=== PATIENT | male | born 1960 | race Caucasian/White ===

== ENCOUNTER 2020-09-17 18:35 | Emergency (ER) | payer OTHER, SELFPAY ==
[2020-09-17 18:37] VITALS: BP 223/124; PULSE 84; RESP 17; TEMP 36.4; O2SAT 96; BMI 24.3
--- NOTE | 2020-09-17 18:59 | EKG12_ITS ---
Test Reason : DYSRHYTHMIA Blood Pressure : / mmHG Vent. Rate : 079 BPM Atrial Rate : 079 BPM P-R Int : 136 ms QRS Dur : 072 ms QT Int : 374 ms P-R-T Axes : 063 055 007 degrees QTc Int : 428 ms Normal sinus rhythm Septal infarct , age undetermined Abnormal ECG Confirmed by MARGO LANGLEY, BERTHA ([id number]), purchase request editor SHALA GONZALEZ ([id number]) on 09/18/2020 10:50:24 AM Referred By: JUAN Confirmed By:BERTHA ARAGON MD
--- NOTE | 2020-09-17 19:04 | ED.VIS.GEN ---
History of Present Illness Chief Complaint: Hypertension Informant: Patient Narrative: Patient is a 59-year-old male with a past medical history of asthma who presents to the emergency department for high blood pressure. He was seen by his PCP today who recorded his blood pressure to be in the 220s systolic. He was referred to the emergency department. Patient is completely asymptomatic with this. He denies any known history of high blood pressure. He does not follow regularly with a doctor and his last PCP visit was over a year and a half ago. He denies any headache, vision changes. No chest pain or shortness of breath. No heart palpitations. No leg swelling or calf pain. Denies any recent illness. He is a current everyday smoker. Past Medical History - Allergies and Home Meds Allergies/Adverse Reactions: Allergies No Known Allergies Allergy (Verified 09/17/20 18:37) Primary Care Physician: Quincy Macedo MD [Primary Care Provider] - 3-5 Days Prior records reviewed: Yes Past Medical History: - - Asthma Surgical History: noncontributory Smoking Status: Current every day smoker Review of Systems All systems negative except as indicated General: Denies: Chills, Fever, Sweats Eyes: Denies: Visual changes - bilaterally, Diplopia ENT: Denies: Rhinorrhea, Sore throat Cardiovascular: Denies: Chest pain, Palpitations Respiratory: Denies: Dyspnea, Cough, Dyspnea on exertion Gastrointestinal: Denies: Abdominal pain, Nausea, Vomiting, Diarrhea Genitourinary: Denies: Dysuria, Hematuria, Frequency Musculoskeletal: Denies: Back pain, Extremity Pain Skin: Denies: Rash, Wounds Neurological: Denies: Headache, Weakness, Numbness Physical Exam Vital Signs/Narrative: Vital Signs Temp Pulse Resp BP Pulse Ox 09/17/20 18:37 97.6 F L 84 17 223/124 H 96 Inital Vital Signs reviewed: Yes General: Well nourished, Well developed, No Acute Distress Head: Normocephalic, Atraumatic Eyes: Perrl, EOMI ENT: Moist mucous membranes, No rhinorrhea Neck: Supple, Nontender Cardiovascular: Regular rate, Regular rhythm, No murmurs Respiratory: No distress, CTA bilaterally, Chest nontender Abdomen: Soft, Nontender, Nondistended, Normal bowel sounds Back: Nontender, Normal Inspection Extremities: Nontender, No edema. Negative for: Calf Tenderness Skin: Normal color, No rash Neurological: Alert, Oriented x3, Cranial nerves II-XII grossly intact, Normal Strength, Normal Sensation Psychological: Normal affect, Normal Mood Diagnostic/Tx/Re-eval - EKG Initial EKG Interpretation: - - Rate of 79 bpm and normal sinus rhythm. Normal intervals. Normal axis. No significant ST elevations or depressions appreciated. Mild ST segment elevation in V2. No reciprocal changes. No T wave abnormalities. - Medical Decision Making Patient presents to the ED today for referral for asymptomatic hypertension. He is hypertensive upon arrival but has no complaints. Will check basic lab work to evaluate for signs of endorgan damage. Patient's lab work did not reveal a significant acute abnormality. He was given a dose of Norvasc here orally. His blood pressure did come down to the 180s systolic. I did contact his PCP who recommended placing him on a combination lisinopril, hydrochlorothiazide. We will write him a prescription for this. He needs to follow-up with his PCP otherwise. Return precautions are reviewed. He understands and is agreeable this plan. Discharged home in stable condition. All questions were answered. ED Disposition - Plan for ED Patient: Disposition: Home or Assisted Living Diagnosis: Asymptomatic hypertension Instructions: ED Hypertension, New (Begin Treatment) Prescriptions: Lisinopril/Hydrochlorothiazide [Lisinopril-Hctz 20-12.5 mg Tab] 1 ea PO DAILY 30 Days #30 tab Transmission Status: Received by [id number] Referrals: Quincy Macedo MD [Primary Care Provider] - 3-5 Days
[2020-09-17 19:10] VITALS: BP 208/118
[2020-09-17 19:11] LABS: Absolute Lymphocyte Count 2.81 X10^3/uL (0.83-4.51); Basophil# 0.05 X10^3/uL; Basophil% 0.5 % (0-1); Eosinophil# 0.18 X10^3/uL; Eosinophils% 1.8 % (0-5); Hematocrit 44.7 % (40-54); Hemoglobin 15.4 g/dL (13.0-16.5); Lymphocyte # 2.81 X10^3/ul (4.0); Lymphocyte % 28.4 % (19-41); Mean Corp Hgb Conc 34.5 g/dL (32-36); Mean Corpuscular Hgb 31.2 pg (27.0-32.0); Mean Corpuscular Volume 90.7 fL (80-94); Mean Platelet Vol. 9.3 fl (6.2-12.0); Monocyte# 0.82 X10^3/uL; Monocyte% 8.3 % (0-10); NRBC Flagged by Analyzer 0 % (0-5); Neutrophil % 60.8 % (47-70); Platelet Count 323 K/mm3 (150-450); RBC Distribution Width CV 12.7 % (11.6-14.6); RBC Distribution Width SD 42.1 fl (35.1-43.9); Red Blood Count 4.93 M/mm3 (4.6-6.2); White Blood Count 9.9 K/mm3 (4.4-11.0)
[2020-09-17] MEDS: amLODIPine 5 MG Tablet PO (19:25)
[2020-09-17 19:33] LABS: Anion Gap 5 (5-15); BUN 17 mg/dL (7-18); Calcium,Total 8.5 mg/dL (8.5-10.1); Chloride 106 mmol/L (98-107); EST Glomerular Filtration Rate 81 mL/min (>60); Est Glom Filt Rate - Afr Amer 98 mL/min (>60); Estimated Creatinine Clearance 65.78 ml/min; Glucose 82 mg/dL (74-106); Potassium 3.5 mmol/L (3.5-5.1); Sodium Level 140 mmol/L (136-145)
[2020-09-17 19:39] VITALS: BP 193/112
[2020-09-17 20:10] VITALS: BP 183/109; PULSE 80; RESP 16; O2SAT 98
== END 2020-09-17 20:15 | disposition home or self-care (01) ==
PROVIDERS: Emergency Provider Emergency Medicine; PCP Family Medicine
DX: I10 Essential (primary) hypertension (principal); F17.200 Nicotine dependence, unspecified, uncomplicated
CPT/HCPCS: 80048; 84484; 85025; 93005; 99283